=== PATIENT | female | born 1965 | race Caucasian/White ===

== ENCOUNTER 2017-12-18 13:14 | Outpatient (CLI) | payer OTHER | END 2017-12-18 13:23 | disposition home or self-care (01) | LOC: RAD 13:14 | DX: M54.2 Cervicalgia (principal); M54.6 Pain in thoracic spine; M79.631 Pain in right forearm ==

== ENCOUNTER 2017-12-20 12:33 | Outpatient (CLI) | payer OTHER | END 2017-12-20 17:00 | disposition home or self-care (01) | LOC: SONOGRAMA 12:33 | DX: M54.2 Cervicalgia (principal); M54.6 Pain in thoracic spine; M76.31 Iliotibial band syndrome, right leg ==